=== PATIENT | male | born 1945 | race Hispanic/Latino ===

== ENCOUNTER 2017-04-23 08:33 | Day surgery (SDC) | payer MEDICARE ==
[2017-04-14 15:34] VITALS: BP 151/72
[2017-04-14 15:41] LABS: BASOPHILS % (AUTO) 0.7 % (0.0-5.0); EOSINOPHILS % (AUTO) 6.1 % (0.0-8.0); HEMATOCRIT 33.6 % (42-54); LYMPHOCYTES % (AUTO) 28.2 % (21.0-51.0); MEAN CORPUSCULAR HEMOGLOBIN 31.4 pg (27.0-33.0); MEAN CORPUSCULAR VOLUME 92.2 fL (79-99); MONOCYTES % (AUTO) 13.2 % (3.0-13.0); NEUTROPHILS % (AUTO) 51.8 % (40.0-77.0); PLATELET COUNT (AUTO) 186 K/uL (130-400); RED BLOOD CELL COUNT(AUTO) 3.65 MIL/uL (4.50-6.20); RED CELL DISTRIBUTION WIDTH 13.5 % (11.0-15.5); WHITE BLOOD COUNT (AUTO) 7.8 K/uL (4.8-10.8)
[2017-04-14 15:53] LABS: CREATININE 0.9 mg/dL (0.5-1.5)
[~2017-04-23] VITALS: Ht 160 cm; Wt 74.4 kg
[2017-04-23] VITALS (17 sets, daily range): BP systolic 120–140; BP diastolic 58–74
[~2017-04-23 08:33] MED LIST: CEFTRIAXONE SODIUM 1 GM IVP SCH; FINA5TAB2 PO; TAMS0.4C32 PO
[2017-04-23] MEDS ORDERED: CEFAZOLIN SODIUM 1 GM VIAL ONE (09:53)
[2017-04-23] MEDS ORDERED: WATER FOR INJECTION,STERILE 20 ML VIAL ONE (10:00)
[2017-04-23] MEDS ORDERED: LACTATED RINGERS 1000ML 1,000 ML IV ONE (10:00)
[2017-04-23] MEDS: CEFTRIAXONE SODIUM 1 GM ONE ×2 (10:27→11:50)
[2017-04-23] MEDS ORDERED: PROPOFOL 10 MG/ML 20ML VIAL IV ONE (11:16)
[2017-04-23] MEDS ORDERED: GLYCOPYRROLATE 0.2 MG/ML 5 ML VIAL ONE (11:16)
[2017-04-23] MEDS ORDERED: ONDANSETRON HCL 4 MG/2 ML VIAL ONE (11:16)
[2017-04-23] MEDS ORDERED: MIDAZOLAM HCL 1 MG/ML 2ML VIAL ONE (11:16)
[2017-04-23] MEDS ORDERED: DEXAMETHASONE SOD PHOSPHATE 10MG/ML 1ML VIAL ONE (11:16)
[2017-04-23] MEDS ORDERED: SUCCINYLCHOLINE 200MG/10ML SYR ONE (11:16)
[2017-04-23] MEDS ORDERED: FENTANYL CITRATE PF 50 MCG/1 ML 5ML AMP IV ONE (11:18)
[2017-04-23] MEDS ORDERED: GENTAMICIN SULFATE 80 MG/2 ML VIAL ONE ×2 (12:12→13:04)
[2017-04-23] MEDS ORDERED: IPRATROPIUM/ALBUTEROL SULFATE 3 ML SOLUTION IH ONE (14:33)
[2017-04-23] MEDS ORDERED: PHENAZOPYRIDINE HCL 200 MG TABLET ONE (15:31)
== END 2017-04-23 16:13 | disposition home or self-care (01) ==
LOC: DAH 08:33
PROVIDERS: ATTEND Urology
DX: N40.1 Benign prostatic hyperplasia with lower urinary tract symptoms (principal); R33.8 Other retention of urine; F17.200 Nicotine dependence, unspecified, uncomplicated; I12.9 Hypertensive chronic kidney disease with stage 1 through stage 4 chronic kidney disease, or unspecified chronic kidney disease; N18.9 Chronic kidney disease, unspecified
CPT/HCPCS: 36415; 52648; 80048; 85025; 87088; 87186; 88305; 94640; A4340; A4344; A4358; A4510; A4600; J0330; J0696; J1100; J1580 ×2; J2250; J2405; J2704; J3010; J3490; J7120 ×2; J0690